=== PATIENT | female | born 1940 | race Caucasian/White ===

== ENCOUNTER → 2016-12-30 | Outpatient (CLI) | payer OTHER | LOC: KOH-I 12:27 | DX: S09.93XD Unspecified injury of face, subsequent encounter (principal); S02.2XXD Fracture of nasal bones, subsequent encounter for fracture with routine healing | CPT/HCPCS: 70150 ==

== ENCOUNTER → 2022-07-03 | Outpatient (CLI) | payer OTHER | LOC: EXRD 10:21 | DX: M25.562 Pain in left knee (principal); M25.561 Pain in right knee; M79.605 Pain in left leg | CPT/HCPCS: 73560; 93971 ==